=== PATIENT | male | born 1930 | race Caucasian/White ===

== ENCOUNTER 2017-11-06 19:22 | Observation (INO) ==
[2017-11-06] MEDS ORDERED: SALINE FLUSH 10ml SYRINGE IVF PRN (19:24)
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
[2017-11-06] MEDS ORDERED: ACETAMINOPHEN 325 MG TABLET PO PRN (23:04)
[2017-11-06] MEDS ORDERED: NITROGLYCERIN 0.4 MG SUBLINGUAL TABLET SL PRN (23:04)
[2017-11-06 23:09] VITALS: BMI 19.8
[2017-11-06 23:22] VITALS: RESP 16
[2017-11-07] MEDS: NS 1,000 ML IV SCH ×2 (00:31→13:07)
--- NOTE | 2017-11-07 07:45 | CT Scan Report ---
Indication: worsened acute aphasia and severe confusion PROCEDURE: CT head/brain wo con: Encounter: Initial Comparison: October 11, 2017 Technique: Axial CT images through the head were performed without contrast. Iterative Reconstruction dose reducing technique was utilized. FINDINGS: The ventricles are of normal size, shape, and contour for the patient's age. There are scattered areas of low attenuation in the white matter which most likely represent changes from chronic microvascular ischemia. The brainstem, cerebellum, and cerebral hemispheres otherwise have a normal morphology and CT attenuation. There is no evidence of midline displacement. No hemorrhage, signs of acute territorial stroke, mass effect, mass lesions, or edema is evident. The visualized portions of the skull base, midface, and calvarium demonstrate no abnormality. The paranasal sinuses are well aerated and free of significant disease. The tympanic and mastoid cavities appear normal. IMPRESSION: No acute intracranial abnormality or hemorrhage. There is a preliminary report by [facility]. .
--- NOTE | 2017-11-07 11:46 | Magnetic Resonance Report ---
Indication: altered mental status PROCEDURE: MR head/brain wo con: Encounter: Initial Comparisons: Head CT from today and brain MRI dated October 24, 2017 Technique: Multiplanar, multisequence, MR imaging of the head without contrast was acquired. FINDINGS: Moderate motion artifact. Mild generalized atrophy. The ventricles are unchanged. Stable periventricular white matter lesions in the frontal and parietal lobes. The brain stem, cerebellum, and cerebral hemispheres otherwise have a normal morphologic appearance as well as MR signal intensity on all pulse sequences. There are no areas of restricted diffusion on diffusion weighted imaging to suggest an acute infarct. There is no evidence of an intracranial mass lesion, intracranial hemorrhage, or hydrocephalus. The visualized portions of the orbits, calvarium, paranasal sinuses, and skull base demonstrate no significant abnormality. IMPRESSION: No acute intracranial abnormality. Stable exam. .
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
--- NOTE | 2017-11-07 13:13 | History & Physical Report ---
History of Present Illness Date: 11/07/17 Chief complaint: altered mental status, expressive aphasia, failure of self cares HPI: Sean Strange is a pleasantly confused, 87-year-old male patient of Dr. Wen who has a known history of expressive aphasia and dementia. He was brought [place] [facility], along with his who has Alzheimer's, after his neighbor found him driving up and down the driveway multiple times on the evening of 11/06. Evaluation in the ED was unremarkable. He was noted to have mild anemia ( Hgb 11.9) and stable CMP. UA was negative. CT head in the ED showed no acute intracranial abnormalities or hemorrhage. He follows with Dr. Philippe, neurology, and recently underwent a MRI brain on 10/24/17 which revealed a stable brain without acute changes as well as small vessel ischemia normal for his age. He also had a recent carotid ultrasound on 10/16/17 which revealed minimal atherosclerotic plaque for age and no significant stenosis. Due to his apparent confusion and reported altered mental status, the hospitalist service was consulted and he was admitted into observation status with anticipated psychiatric screen on 11/07/17. He is seen this morning, 11/07/17, with his Suellen, at the bedside. She repeatedly asks when they can go home and is also noted to be extremely confusion. History from the patient and his is limited due to their extreme confusion and his expressive aphasia. Extensive review of prior medical records, nursing notes and ED records completed and information contributed to current history. He denies any current complaints or concerns on exam and is unable to recall why he hospitalized. His son, Palomo, who is DPOA of the patient, was contacted via phone this morning and the patient case was discussed in conjunction with case management. Family expressed concern about new symptoms beginning on 11/02/17 including leg weakness and pain which was relieved with nitro. Review of Systems ROS unobtainable: due to mental status (and expressive aphesia) All systems PM: 10-point ROS was reviewed, no additional remarkable complaints except - Constitutional Constitutional: Present: weakness. Absent: chills, fatigue, fever(s), night sweats - EENMT Eyes: Absent: diplopia, dry eye, photophobia Ears: Absent: ear pain Balance: Absent: falling to one side Nose: Absent: nosebleeds Mouth/Throat: Absent: sore throat, changes in swallowing, dry mouth - Cardiovascular Cardiovascular: Absent: chest pain, palpitations, syncope, dyspnea on exertion, orthopnea, edema Vascular: Absent: pallor of an extermity, pedal edema - Respiratory Respiratory: Absent: cough, dyspnea, hemoptysis, dyspnea on exertion, wheezing, pain on inspiration - Gastrointestinal Gastrointestinal: Absent: abdominal pain, diarrhea, nausea, vomiting - Genitourinary Genitourinary: Absent: dysuria, flank pain, hematuria - Musculoskeletal Musculoskeletal: Absent: deformity - Integumentary/Breasts Integumentary: Absent: rash - Neurological Neurological: Present: confusion, weakness. Absent: convulsions, dizziness, focal weakness, headache(s), loss of vision, tremor(s) - Psychiatric Psychiatric: Absent: anxiety, behavioral changes, depression - Endocrine Endocrine: Absent: flushing, palpitations - Hematologic/Lymphatic Hematologic/Lymphatic: Absent: easy bruising - Allergic/Immunologic Allergic/Immunologic: Absent: seasonal rhinorrhea Past Medical History Patient Stated Medical History Dementia. Expressive aphasia. CAD with angina. Hyperlipidemia. GERD with hiatal hernia. Chronic kidney disease, stage III - baseline SCr ~1.3-1.5. BPH. Degenerative disc disease. Cataracts. History of pneumonia. Surgical History: Patient denies prior surgeries though reports prior heart surgery. Surgical scar to chest consistent with prior CABG. Prior records indicate lumbar laminectomy (age 41). Family History Updates: Patient reports he has a daughter (Leigh) and son (Palomo ) both whom are reportedly healthy. - Social History Smoking status: Never smoker Substance use type: does not use Alcohol intake frequency: does not drink Housing: house Household members: spouse (Suellen) Current occupational status: retired (teacher) Does patient use chewing tobacco?: No Current residence: Apartment/Private Home Social history: PCP - Dr. Wen. Neuro - Dr. Philippe. Medications Home Medications Medication Instructions Recorded Confirmed Type RX: Nitroglycerin 0.4 mg SL Q5M PRN 06/23/17 11/06/17 History Tamsulosin [Flomax] 0.4 mg PO HS 06/23/17 11/06/17 History Allergies Allergy/AdvReac Type Severity Reaction Status Date / Time No Known Allergies Allergy Unknown Verified 11/06/17 23:26 Exam Vital Signs: Temperature 98.2 F 11/07/17 08:25 Pulse Rate 68 11/07/17 08:25 Respiratory Rate 16 11/07/17 08:25 Blood Pressure 144/76 H 11/07/17 08:25 Pulse Oximetry 95 11/07/17 08:25 Height/Weight/BMI: Height 5 ft 8 in Weight 127 lb 10.362 oz Body Mass Index 19.8 Comments: Patient is seen while resting in bed with his at the bedside, eager for discharge and apparently very confused. - Constitutional Present: no acute distress, thin, cooperative - Routine HEENT Exam Head: Present: normocephalic, atraumatic Eye: Present: PERRL. Absent: conjunctival icterus ENT: Present: mucous membranes moist, oropharynx clear - Routine Neck Exam Present: supple, full ROM, trachea midline - Routine Chest/Breast/Axilla Exam Chest wall: Absent: tenderness - Routine Respiratory Exam Present: CTA bilaterally. Absent: respiratory distress, rhonchi, stridor, wheezes, crackles - Routine Cardiovascular Exam Present: RRR, S1, S2 Comments: healed scar consistent with prior heart surgery/CABG. - Routine Abdominal Exam Present: soft, normoactive bowel sounds, non distended, non tender. Absent: rebound, guarding - Routine Extremities Exam Present: no edema, non tender, full ROM, pulses intact. Absent: calf tenderness - Routine Back/Spine/Pelvis Exam Back/Spine: Present: full ROM. Absent: vertebral tenderness - Routine Skin Exam Present: intact, dry, warm. Absent: jaundice Comments: afebrile. - Routine Neurological Exam Present: alert (orientated to person, not place or time.), CN II-XII intact, moving all extremities, hearing grossly intact. Absent: sensory deficit, motor deficit, hemineglect, facial asymmetry, normal speech expressive aphasia, confused. - Routine Psychiatric Exam Present: cooperative Results - Labs CBC & Chem 7: 11/07/17 04:19 11/07/17 04:19 - Imaging and Cardiology MRI - head Status: image reviewed by me Additional comments: Date of Exam: 11/07/17 Type of Exam(s): MR head/brain wo con Reason for Exam(s): altered mental status Technique: Multiplanar, multisequence, MR imaging of the head without contrast was acquired. FINDINGS: Moderate motion artifact. Mild generalized atrophy. The ventricles are unchanged. Stable periventricular white matter lesions in the frontal and parietal lobes. The brain stem, cerebellum, and cerebral hemispheres otherwise have a normal morphologic appearance as well as MR signal intensity on all pulse sequences. There are no areas of restricted diffusion on diffusion weighted imaging to suggest an acute infarct. There is no evidence of an intracranial mass lesion, intracranial hemorrhage, or hydrocephalus. The visualized portions of the orbits, calvarium, paranasal sinuses, and skull base demonstrate no significant abnormality. IMPRESSION: No acute intracranial abnormality. Stable exam. CT scan - head Status: image reviewed by me Additional comments: Date of Exam: 11/06/17 Type of Exam(s): CT head/brain wo con Reason for Exam(s): worsened acute aphasia and severe confusion Technique: Axial CT images through the head were performed without contrast. Iterative Reconstruction dose reducing technique was utilized. FINDINGS: The ventricles are of normal size, shape, and contour for the patient's age. There are scattered areas of low attenuation in the white matter which most likely represent changes from chronic microvascular ischemia. The brainstem, cerebellum, and cerebral hemispheres otherwise have a normal morphology and CT attenuation. There is no evidence of midline displacement. No hemorrhage, signs of acute territorial stroke, mass effect, mass lesions, or edema is evident. The visualized portions of the skull base, midface, and calvarium demonstrate no abnormality. The paranasal sinuses are well aerated and free of significant disease. The tympanic and mastoid cavities appear normal. IMPRESSION: No acute intracranial abnormality or hemorrhage. Assessment and Plan (1) Requires supervision due to deficit in self-care Current visit: Yes Status: Acute (2) Expressive aphasia Current visit: Yes Status: Chronic (3) Dementia Current visit: Yes Status: Chronic Assessment and Plan: 87-year-old male patient of Dr. Wen with a history of dementia and expressive aphasia who currently lives at home with his , whom also has dementia, and noted to have recent worsening confusion and altered mental status. Assessment: Acute mental status and confusion. Acute/chronic progressive expressive aphasia. Chronic kidney disease, stage III - baseline SCr 1.3-1.5. Dementia. CAD with angina. Hyperlipidemia. GERD with hiatal hernia. BPH. Degenerative disc disease. Plan - 11/07/17: Admit to hospitalist service. Telehospitalist consulted Dr. Loomis as the patient has recently undergone evaluation for his confusion and aphasia. Given family's report of recent leg weakness with pain, repeat MRI brain obtained and was negative for acute changes. Generations consulted and patient screened and didn't meet admission criteria. Case management actively working with family on placement options as the patient and his are not deemed safe to return home. Patient was seen and evaluated by PT/OT who did not recommend any additional treatments. Speech recommended modified diet of chopped meats and regular liquids as well as communication retraining and cognitive linguistic treatment 5x week. Repeat labs this morning revealed stable anemia (Hgb 11.9) and slightly elevated TSH (4.78) and otherwise unremarkable. Awaiting family to arrive this evening to determine placement options. DVT Prophylaxis: SCD's Resuscitation Status: Full Code - Time spent with patient Time with patient PN: other (85 minutes) - Physician Narrative Physician: other (Dr. Garcia) Narrative: Date: 11/07/17 Time: 1440 Patient seen and examined independently. Discussed with PA/PETS SALESPERSON. Family (niece and and ) at bedside. Patient sitting comfortably in chair. Patient is confused and having trouble with wording finding on exam. Plan: working on placement. Generations refused. Patient unsafe to go home. Hospital Course Summary Disclaimer: The visit summary below is not to be considered part of the above Progress Note. Hospital Course: Plan - 11/07/17: Admit to hospitalist service. Telehospitalist consulted Dr. Loomis as the patient has recently undergone evaluation for his confusion and aphasia. Given family's report of recent leg weakness with pain, repeat MRI brain obtained and was negative for acute changes. Generations consulted and patient screened and didn't meet admission criteria. Case management actively working with family on placement options as the patient and his are not deemed safe to return home. Patient was seen and evaluated by PT/OT who did not recommend any additional treatments. Speech recommended modified diet of chopped meats and regular liquids as well as communication retraining and cognitive linguistic treatment 5x week. Repeat labs this morning revealed stable anemia (Hgb 11.9) and slightly elevated TSH (4.78) and otherwise unremarkable. Awaiting family to arrive this evening to determine placement options.
[2017-11-07 16:10] VITALS: TEMP 97
--- NOTE | 2017-11-07 17:25 | Discharge Summary ---
Discharge Information Date of admission: 11/06/17 22:17 Anticipated date of discharge: 11/07/17 Attending Physician: Kat Garcia MD Primary care physician: Hakan Wen MD Consults: Dr. Philippe - neurology. Generations Screen - geriatric psychiatry. - Discharge Diagnosis (1) Expressive aphasia Status: Chronic (2) Dementia Status: Chronic (3) Requires supervision due to deficit in self-care Status: Acute Self-Care deficit. Anemia, mild. Dementia. Expressive aphasia. CAD with angina. Hyperlipidemia. GERD with hiatal hernia. Chronic kidney disease, stage III - baseline SCr ~1.3-1.5. BPH. Degenerative disc disease. - Laboratory Labs: 11/07/17 04:19 11/07/17 04:19 - Radiology Radiology: Date of Exam: 11/07/17 Type of Exam(s): MR head/brain wo con Reason for Exam(s): altered mental status Indication: altered mental status PROCEDURE: MR head/brain wo con: Encounter: Initial Comparisons: Head CT from today and brain MRI dated October 24, 2017 Technique: Multiplanar, multisequence, MR imaging of the head without contrast was acquired. FINDINGS: Moderate motion artifact. Mild generalized atrophy. The ventricles are unchanged. Stable periventricular white matter lesions in the frontal and parietal lobes. The brain stem, cerebellum, and cerebral hemispheres otherwise have a normal morphologic appearance as well as MR signal intensity on all pulse sequences. There are no areas of restricted diffusion on diffusion weighted imaging to suggest an acute infarct. There is no evidence of an intracranial mass lesion, intracranial hemorrhage, or hydrocephalus. The visualized portions of the orbits, calvarium, paranasal sinuses, and skull base demonstrate no significant abnormality. IMPRESSION: No acute intracranial abnormality. Stable exam. Date of Exam: 11/06/17 Type of Exam(s): CT head/brain wo con Reason for Exam(s): worsened acute aphasia and severe confusion FINDINGS: The ventricles are of normal size, shape, and contour for the patient's age. There are scattered areas of low attenuation in the white matter which most likely represent changes from chronic microvascular ischemia. The brainstem, cerebellum, and cerebral hemispheres otherwise have a normal morphology and CT attenuation. There is no evidence of midline displacement. No hemorrhage, signs of acute territorial stroke, mass effect, mass lesions, or edema is evident. The visualized portions of the skull base, midface, and calvarium demonstrate no abnormality. The paranasal sinuses are well aerated and free of significant disease. The tympanic and mastoid cavities appear normal. IMPRESSION: No acute intracranial abnormality or hemorrhage. History of Present Illness HPI: Sean Strange is a pleasantly confused, 87-year-old male patient of Dr. Wen who has a known history of expressive aphasia and dementia. He was brought [place] [facility], along with his who has Alzheimer's, after his neighbor found him driving up and down the driveway multiple times on the evening of 11/06. Evaluation in the ED was unremarkable. He was noted to have mild anemia ( Hgb 11.9) and stable CMP. UA was negative. CT head in the ED showed no acute intracranial abnormalities or hemorrhage. He follows with Dr. Philippe, neurology, and recently underwent a MRI brain on 10/24/17 which revealed a stable brain without acute changes as well as small vessel ischemia normal for his age. He also had a recent carotid ultrasound on 10/16/17 which revealed minimal atherosclerotic plaque for age and no significant stenosis. Due to his apparent confusion and reported altered mental status, the hospitalist service was consulted and he was admitted into observation status with anticipated psychiatric screen on 11/07/17. He is seen this morning, 11/07/17, with his Suellen, at the bedside. She repeatedly asks when they can go home and is also noted to be extremely confusion. History from the patient and his is limited due to their extreme confusion and his expressive aphasia. Extensive review of prior medical records, nursing notes and ED records completed and information contributed to current history. He denies any current complaints or concerns on exam and is unable to recall why he hospitalized. His son, Palomo, who is DPOA of the patient, was contacted via phone this morning and the patient case was discussed in conjunction with case management. Family expressed concern about new symptoms beginning on 11/02/17 including leg weakness and pain which was relieved with nitro. Objective Vital signs: Temperature 97.0 F 11/07/17 16:09 Pulse Rate 61 11/07/17 16:09 Respiratory Rate 16 11/07/17 16:09 Blood Pressure 125/63 11/07/17 16:09 Pulse Oximetry 98 11/07/17 16:09 Height/Weight/BMI: Height 5 ft 8 in Weight 127 lb 10.362 oz Body Mass Index 19.8 - Constitutional Present: no acute distress, thin, cooperative - Routine HEENT Exam Head: Present: normocephalic, atraumatic Eye: Present: PERRL. Absent: conjunctival icterus ENT: Present: mucous membranes moist - Routine Respiratory Exam Present: CTA bilaterally - Routine Cardiovascular Exam Present: RRR, S1, S2 - Routine Abdominal Exam Present: soft, normoactive bowel sounds, non distended, non tender - Routine Extremities Exam Present: no edema, full ROM, pulses intact - Routine Back/Spine/Pelvis Exam Back/Spine: Present: full ROM. Absent: vertebral tenderness - Routine Musculoskeletal Exam Musculoskeletal: Present: moving extremities well - Routine Skin Exam Present: intact, dry, warm. Absent: jaundice - Routine Neurological Exam Present: alert, moving all extremities. Absent: normal speech expressive aphasia - Routine Lymphatic Exam Lymphatic: Absent: lymphedema - Routine Psychiatric Exam Present: cooperative Hospital Course This is a general summary of the patient's hospital course. For more details refer to the complete medical record. Hospital course: Plan - 11/07/17: Admit to hospitalist service. Telehospitalist consulted Dr. Loomis as the patient has recently undergone evaluation for his confusion and aphasia. Given family's report of recent leg weakness with pain, repeat MRI brain obtained and was negative for acute changes. Generations consulted and patient screened and didn't meet admission criteria. Case management actively working with family on placement options as the patient and his are not deemed safe to return home. Patient was seen and evaluated by PT/OT who did not recommend any additional treatments. Speech recommended modified diet of chopped meats and regular liquids as well as communication retraining and cognitive linguistic treatment 5x week. Repeat labs this morning revealed stable anemia (Hgb 11.9) and slightly elevated TSH (4.78) and otherwise unremarkable. Awaiting family to arrive this evening to determine placement options. 1715 - Son is driving in from [place] and has arranged for family to order picker/assembler the patient and his and to stay with them until their son, Paloom, arrives later this evening in their home. He is going to stay the week and work on placement for the patient and his as they are unsafe to continue living alone together without assistance. Discharge plan was coordinated by case management with the family. Time spent with patient: greater than 35 minutes Resuscitation Status: Full Code Discharge Plan - Discharge Disposition Discharge Date: 11/07/17 (discharged home with family) Disposition: Discharged Home, Self-Care *Condition: Improved Reason For Visit (Visit label in EMR): Progressive expressive aphasia,altered mental stat - Discharge Medications *Discharge Medications: New Donepezil [Aricept] 5 mg PO HS #30 tab Aspirin Chewable [ASA] 81 mg PO DAILY #30 tab.chew Acetaminophen [Tylenol] 650 mg PO Q5H PRN tab PRN Reason: Discomfort Continue Nitroglycerin 0.4 mg SL Q5M PRN PRN Reason: Chest Pain Tamsulosin [Flomax] 0.4 mg PO HS - Discharge Packet/Instructions *Diet: Regular diet with chopped meats and regular liquids. *Activity: as tolerated. *Pain Management/Treatment: Tylenol 650mg by mouth every 6 hours as needed for pain. *Wound Care: N/A Additional Instructions: Take home medications as directed. Follow up with Dr. Philippe (neurology) next week. Call his office to make an appointment. Follow up with Dr. Wen (PCP) in AM. Call his office to make an appointment. *Expected Signs/Symptoms: Patient is expected to have continued confusion with difficulty expressing words. *Notify Physician if: fever >101, difficulty breathing, chest pain, abdominal pain, decreased consciousness, change or worsening or addtional concerns. *During Business Hours Contact: Dr. Hakan Wen at [phone]. *After Business Hours Contact: collections rep physician for Dr. Wen at or come to [facility]. *Pending Lab/Results: No Pending Lab - Referrals/Follow Up *Referrals/Follow Up: Raquel Philippe MD [Physician] - 11/11/17 (Call to schedule appointment.) Hakan Wen MD [Family Provider] - 1 Day (Call to schedule appointment.) - Patient Handouts Patient Handouts: Dementia (ED) - Dismissal Complete Discharge Instructions are:: Complete Physician Narrative - Narrative Physician: other (Dr. Garcia) Attestation Narrative: Date: 11/07/17 Time: 1105 Agree with above. Patient medically stable for discharge. Pleasantly confused on exam. Family to work on placement as an outpatient.
[2017-11-07 19:38] VITALS: BP 135/65; PULSE 66; O2SAT 100
[2017-11-07] MEDS ORDERED: DONEPEZIL 5 MG TABLET PO SCH (21:00)
[2017-11-07] MEDS ORDERED: --POM--TAMSULOSIN 0.4 MG CAPSULE PO SCH (21:00)
== END 2017-11-07 20:40 | disposition home or self-care (01) ==
LOC: ED 19:22 → MED 19:22 → SRG 23:02
PROVIDERS: ADMIT Internal Medicine; ATTEND Pediatrics